=== PATIENT | female | born 1985 | race African-American/Black ===

== ENCOUNTER 2020-03-16 00:43 | Outpatient (CLI) | payer OTHER, SELFPAY ==
[2020-03-16 17:00] LABS: SARS-CoV-2 RNA PCR Negative
== END 2020-03-16 00:44 | disposition home or self-care (01) ==
LOC: ANHCOVIDDT 00:43
PROVIDERS: Visit Provider Obstetrics & Gynecology
DX: Z20.828 Contact with and (suspected) exposure to other viral communicable diseases (principal); Z01.812 Encounter for preprocedural laboratory examination
CPT/HCPCS: 87635; C9803; U0003

== ENCOUNTER 2020-03-18 01:01 | Day surgery (SDC) | payer OTHER, SELFPAY ==
[2020-03-03 14:33] VITALS: BMI 25.2
[2020-03-18] MEDS: LACTATED RINGERS 1,000 ML 30 ML IV CONT (09:45)
[2020-03-18 09:50] VITALS: BP 117/78; PULSE 63; RESP 16; TEMP 36.2; O2SAT 100
--- NOTE | 2020-03-18 09:51 | WPDANESEPPF ---
Anes - Initial Pre Proc Eval Procedure: Operation Date: 03/18/20 10:30 Proposed Procedures p Hysteroscopy, Intrauterine Device Removal - Alma Rosa Esquivel MD Date/Time: 03/18/20 09:51 Surgeon: Alma Rosa Esquivel MD Pre Op Diagnosis: malpositioned IUD Patient Data Age: 34 Gender: F Height: 5 ft 4 in Weight: 66.68 kg Allergies Allergy/AdvReac Type Severity Reaction Status Date / Time No Known Allergies Allergy Verified 03/03/20 14:27 Home Medications Medication Instructions Recorded Confirmed Type No Home Medications 03/03/20 03/03/20 History Patient hx anesthesia problems: none Family hx anesthesia problems: none Anes - Eval Final PreProcedure Day of Procedure 03/18/20 09:51 Patient weight: normal Heart: regular rate and rhythm Lungs: clear to auscultation Airway: Mallampati scale class 1 Neurological: alert and oriented Last oral intake: >/= 8 hours ASA classification: I Emergent: no Anesthetic plan: proceed Anesthesia type and monitoring: general GIVS and standard monitoring Informed Consent: The patient's anesthetic plan and its attendant risks and benefits were discussed with the patient/family/POA. Questions were solicited and answers provided to the satisfaction of the patient/family/POA.
--- NOTE | 2020-03-18 10:06 | PM.IMHP ---
H&P: HPI History of Present Illness Chief complaint: malpositioned IUD Narrative: Nara Valenzuela is a 34 year old female with a malpositioned IUD needs to be removed hysteroscopically. We have discussed the procedure in detail. She understands the risk patients has injuries may occur that result in hospitalization, more surgery, and severe illness. This completed the informed consent process is ready to proceed. Review of Systems Constitutional: Constitutional: Reports no additional constitutional complaints, Denies fatigue, Denies headache(s), Denies lethargy and Denies weakness Eyes: Eyes: Reports no additional eye complaints, Denies blurry vision and Denies photophobia ENT: Reports as per HPI, Denies headache(s) and Denies neck pain Cardiovascular: Cardiovascular: Denies chest pain, Denies diaphoresis, Denies leg edema, Denies palpitations and Denies dyspnea Respiratory: Respiratory: Denies hemoptysis, Denies dyspnea and Denies wheezing Gastrointestinal: Gastrointestinal: Denies abdominal pain, Denies melena, Denies bloating, Denies hematochezia, Denies nausea and Denies vomiting Genitourinary: Genitourinary: Reports no additional female genitourinary complaints Musculoskeletal: Musculoskeletal: Denies joint swelling, Denies neck pain, Denies numbness and Denies stiffness Neurologic: Denies Abnormal speech present, Denies confusion, Denies headache(s), Denies numbness and Denies weakness Psychiatric: Psychiatric: Denies anxiety, Denies confusion, Denies depression, Denies homicidal ideation and Denies suicidal ideation Endocrine: Endocrine: Denies fatigue and Denies palpitations Allergic/Immunologic: Allergic/Immunologic: Denies wheezing Meds Home Medications and Allergies Home Medications Medication Instructions Recorded Confirmed Type No Home Medications 03/03/20 03/03/20 History Allergies Allergy/AdvReac Type Severity Reaction Status Date / Time No Known Allergies Allergy Verified 03/18/20 10:06 Exam Const: General: healthy appearing, comfortable and no acute distress; No confusion Orientation/consciousness: No confusion Eyes: Direct Ophthalmoscopy: No photophobia Resp: Auscultation: clear to auscultation bilaterally, no rales, no rhonchi and no wheezes Cardio: Rate: regular rate Heart sounds: no click, no murmurs and no rubs GI: Inspection: non-distended GI Palp: No abdominal tenderness Auscultation: normal bowel sounds Neuro: General: No confusion Speech: No Abnormal speech present Extrem: General: normal to inspection, no pedal edema and no calf tenderness Assessment and Plan Assessment and plan (1) Malpositioned intrauterine device (IUD): Code(s): T83.32XA - Displacement of intrauterine contraceptive device, initial encounter Status: Acute Assessment and Plan: This patient is a 34-year-old female with a malpositioned IUD. We have agreed to perform hysteroscopic removal of IUD. She has completed the informed consent process is ready to proceed. She understands the risks, benefits, and alternatives.
[2020-03-18] MEDS: IBUPROFEN IV 800 MG/200 ML 800 MG/200 ML BAG 400 MG IVPB (10:33)
--- NOTE | 2020-03-18 10:59 | PM.PROC ---
Procedure Note - Detailed Date of procedure: 03/18/20 Pre-op diagnosis: malpositioned IUD Post-op diagnosis: same Procedure performed: Hysteroscopy IUD removal Description of procedure: The patient was taken the operating room. She was prepped and draped in the dorsal lithotomy position after induction of mac anesthesia. A speculum was placed in the vagina. The cervix grasped with a tenaculum. The cervix was injected at 3 and 9:00 a.m. with 1% lidocaine. Cervix was dilated up to 1 cm. The hysteroscope was inserted the intrauterine cavity and the above findings were noted. The IUD was found to have both arms imbedded. A hysteroscopic grasper was used to grasp and apply traction to the step and the IUD was removed. Hysteroscope was reinserted the intrauterine cavity to re-examine the endometrial surfaces. Two small copper wire fragments were also removed with the grasper. The hysteroscope was withdrawn. The tenaculum was removed. The speculum was removed. The patient tolerated the procedure well. She was taken recovery room stable condition. Sponge lap needle counts were correct x2. Anesthesia: MAC Surgeon: Alma Rosa Esquivel MD Estimated blood loss (mL): 75 Drains: No Packing: No Pathology: yes Complications: No immediate complications Condition: stable Disposition: PACU Findings: Both IUD arms were imbedded. One in the right endometrium and the other in the left endocervical canal. The endometrium appeared normal. There was normal appearing vulva vagina and cervix.
[2020-03-18 11:00] VITALS: BP 99/54; PULSE 71; RESP 14; TEMP 36.1; O2SAT 100
[2020-03-18 11:25] VITALS: BP 107/66; PULSE 63; RESP 14; O2SAT 100
[2020-03-18 12:03] VITALS: BP 107/76; PULSE 57; RESP 14; O2SAT 100
[2020-03-18 12:30] VITALS: BP 105/62; PULSE 62; RESP 16; O2SAT 100
[2020-03-18 12:45] VITALS: BP 108/60; PULSE 66; RESP 16; O2SAT 100
== END 2020-03-18 12:50 | disposition home or self-care (01) ==
PROVIDERS: Visit Provider Obstetrics & Gynecology
PROC: 0U5B8ZZ Destruction of Endometrium, Via Natural or Artificial Opening Endoscopic (ICD-10-PCS; CPT 58563; principal; 2020-03-18 10:30)
DX: T83.32XA Displacement of intrauterine contraceptive device, initial encounter (principal); Y84.8 Other medical procedures as the cause of abnormal reaction of the patient, or of later complication, without mention of misadventure at the time of the procedure
CPT/HCPCS: 58562; A9270; J1741; J2250; J2704; J3010; J7030; J7120

== ENCOUNTER 2020-04-23 21:08 | Emergency (ER) | payer OTHER, SELFPAY ==
[2020-04-23 21:12] VITALS: BP 129/79; PULSE 71; RESP 16; TEMP 36.9; O2SAT 100
--- NOTE | 2020-04-23 22:12 | ED.SKABFB ---
HPI - Skin/Abscess/Foreign Bdy General Chief complaint: Skin/Abscess/Foreign Body Stated complaint: R shoulder pain Time Seen by Provider: 04/23/20 21:46 History of Present Illness HPI narrative: Patient is a 34-year-old female who presents ER with concerns of possible infection in her right axillary region. She reports she had numerous moles removed a couple days ago transmission technician office. Over the last few days she has noticed that the central area where there should be a scab has turned into a yellow soft tissue. There is no purulent drainage. No surrounding redness. No fevers or chills or sweats. Related Data Allergies Allergy/AdvReac Type Severity Reaction Status Date / Time No Known Allergies Allergy Verified 04/14/20 15:05 Review of Systems Constitutional: Constitutional: Denies chills and Denies fever(s) Integumentary/Breasts: Skin/Breast: Denies bleeding lesions, Denies furuncle, Denies erythema and Reports wounds PMFSH Past Medical History Medical History (Updated 04/23/20 @ 22:16 by Romeo Kaiser MD) SI (sacroiliac) joint dysfunction Family History Family History (Updated 04/14/20 @ 15:29 by Migdalia Henning MD) Grandparent Breast cancer Diabetes mellitus Social History Social History (Updated 04/14/20 @ 15:05 by Zahraa Orozco) Smoking status: Never smoker Second hand tobacco smoke exposure: No Alcohol intake: never Substance use: never Substance use type: does not use Gender identity (if verbalized by the patient): Female Exam Narrative: Exam Narrative: GENERAL: Well-appearing, well-nourished, and in no acute distress. HEAD: Normocephalic, atraumatic. EXTREMITIES: Normal range of motion. No edema. SKIN: Warm, dry, no rash. Healing areas of excision to bilateral axilla. On the right side in the skin creases between the arm and chest wall there is 1/2 cm diameter lesion that appears to be potentially dehisced wound without purulent or serous discharge. No ballotable abscess beneath it. No surrounding cellulitis. NEURO: Alert and oriented x3. Course Course Emergency Course: Suspect that the excised small had healed in this skin fold and then as she started using her arm more over the last couple days she has pulled it apart and the lesion will have to heal with secondary intention. Recommend topical antibiotic and follow-up with her transmission technician. Vital Signs Vital signs: Vital Signs Temperature 98.4 F 04/23/20 21:12 Pulse Rate 71 04/23/20 21:12 Respiratory Rate 16 04/23/20 21:12 Blood Pressure 129/79 04/23/20 21:12 Pulse Oximetry 100 04/23/20 21:12 Temperature 98.4 F 04/23/20 21:12 Pulse Rate 71 04/23/20 21:12 Respiratory Rate 16 04/23/20 21:12 Blood Pressure 129/79 04/23/20 21:12 Pulse Oximetry 100 04/23/20 21:12 Discharge Plan Discharge Clinical Impression: Healing wound Patient Disposition: Home, Self-Care Condition: Stable Instructions: Acute Wounds (ED) Additional Instructions: Your wound should heal well in time. There is no evidence of infection at this time. You may follow-up with your transmission technician for further evaluation. It is likely that your wound has increased in size due to being in a skin fold and you using your arm. Prescriptions: No Action methocarbamol 500 mg tablet 500 mg PO TID Qty: 90 RF: 0 naproxen [Naprosyn] 500 mg tablet 500 mg PO BID PRN (Reason: pain) Qty: 60 RF: 0 Follow-up/Referrals: Migdalia Henning MD [Primary Care Provider] - 1 Week
[2020-04-23 22:42] VITALS: BP 126/79; PULSE 70; RESP 16; TEMP 36.8; O2SAT 100
== END 2020-04-23 22:42 | disposition home or self-care (01) ==
PROVIDERS: Emergency Provider Emergency Medicine; PCP Family Medicine
DX: Z48.01 Encounter for change or removal of surgical wound dressing (principal)
CPT/HCPCS: 99281